=== PATIENT | female | born 1965 | race Native Hawaiian/Other Pacific Islander ===

== ENCOUNTER 2020-06-18 18:46 | Emergency (ER) | payer OTHER, MEDICAID, SELFPAY ==
[2020-06-18 19:21] VITALS: BP 138/66; PULSE 96; RESP 15; TEMP 36.8; O2SAT 98; BMI 25.4
--- NOTE | 2020-06-18 20:10 | ED_ITS ---
HPI - General Adult General Chief complaint: Urogenital-Female Stated complaint: VAGINAL PAIN Time Seen by Provider: 06/18/20 19:26 Source: patient Mode of arrival: Ambulatory Limitations: no limitations History of Present Illness HPI narrative: Patient is a 54-year-old female. Three days ago she was seen at an outside facility for dysuria. She states she was diagnosed with the urinary tract infection and was given a prescription for ciprofloxacin. She is unsure exactly how long she was given a course of this medication but she thought it was approximately 1 week. She has been taking it as directed. She comes to the emergency department today for continued/worsening symptoms. She is also now having which she describes is urinary incontinence. She also has quite a bit of discomfort in her vagina. She also feels like there is a ?ball? in her vagina. She is not having any back pain. Is having some nausea but no vomiting. No fevers. She has had a kidney infection in the past secondary to urinary tract infections. Related Data Home Medications Medication Instructions Recorded Confirmed HYDROCODONE/ACET 5/500 - 1 - 2 tab PO Q4-6H PRN #1 05/22/07 (Hydrocodon-Acetaminophen 5-500) IBUPROFEN (Motrin / Advil) 200 mg PO #0 05/22/07 Naproxen Sodium (Naprosyn) 250 mg PO PRN #0 05/22/07 Previous Rx's Medication Instructions Recorded acyclovir 400 mg PO TID 10 Days #30 tab 06/18/20 cephalexin 500 mg PO BID 5 Days #10 cap 06/18/20 lidocaine 1 applic TOPICAL QID PRN #15 g 06/18/20 Allergies Allergy/AdvReac Type Severity Reaction Status Date / Time codeine AdvReac Nausea Verified 06/18/20 19:21 Sulfa (Sulfonamide AdvReac Nausea Verified 06/18/20 19:21 Antibiotics) Review of Systems Constitutional Constitutional: Denies fever(s) and Denies headache(s) ENT Ears, Nose, Mouth, and Throat: Denies headache(s) Cardiovascular Cardiovascular: Denies chest pain and Denies dyspnea Respiratory Respiratory: Denies dyspnea Gastrointestinal Gastrointestinal: Denies abdominal pain, Reports nausea and Denies vomiting Genitourinary Genitourinary: Reports dysuria, Denies genital lesions, Reports urinary hesitancy, Reports urinary incontinence and Reports urinary urgency Genitourinary: Denies difficulty voiding, Reports dysuria, Denies genital pruritis, Denies genital lesions, Reports pelvic pain, Reports urinary incontinence, Reports urinary hesitancy, Reports urinary urgency and Denies vaginal discharge Musculoskeletal Musculoskeletal: Denies back pain Integumentary/Breasts Skin/Breast: Denies lesions and Denies rash Neurologic Neurologic: Denies behavioral changes and Denies headache(s) Psychiatric Psychiatric: Denies behavioral changes Hematologic/Lymphatic On Anticoagulants: No Allergic/Immunologic Allergic/Immunologic: Denies urticaria Patient History Medical History Healthy adult Social History Smoking Status: Current every day smoker Smoking Status: Current every day smoker Substance Use Type: does not use Exam Initial Vital Signs Initial Vital Signs: Vital Signs Temperature 98.3 F 06/18/20 19:21 Pulse Rate 96 H 06/18/20 19:21 Respiratory Rate 15 06/18/20 19:21 Blood Pressure 138/66 06/18/20 19:21 Pulse Oximetry 98 06/18/20 19:21 Const General: cooperative Limitations: mental status not altered [facility] Head: normal to inspection and normocephalic Resp Effort & Inspection: normal respiratory effort Auscultation: clear to auscultation bilaterally Cardio Rate: regular rate Rhythm: regular rhythm GI Inspection: non-distended Palpation: soft External Female Exam: lesion Speculum Exam - Vagina: abnormal vaginal discharge, lesion and No vaginal bleeding OB/External & Speculum: No vaginal bleeding Skin Rashes: no rashes Other: One pinpoint lesion on the left-sided labia majora Neuro General: patient alert and patient awake Cognition: normal cognition Speech: speech normal Extrem General: capillary refill normal Psych Appearance: grossly normal and well kempt Course Orders Ordered: ED Orders 06/18/20 19:54 Chlamydia Gonorrhea PCR -URINE Stat Urine Culture Stat Urine Microscopic Stat 06/18/20 20:41 HSV Culture Typing Stat RACHEAL Prep Stat Wet Prep Tric BV Sherrell Stat 06/18/20 20:45 GC Screen Stat Discontinued Medications Acyclovir (Acyclovir 400 Mg Tablet) 400 mg PO NOW ONE Stop: 06/18/20 22:37 Last Admin: 06/18/20 23:02 Dose: 400 mg Documented by: AXEL Cephalexin HCl (Cephalexin 250 Mg Capsule) 500 mg PO NOW ONE Stop: 06/18/20 22:37 Last Admin: 06/18/20 22:58 Dose: 500 mg Documented by: AXEL Vital Signs Vital signs: Vital Signs - 8 hr 06/18/20 23:04 Temperature 98.5 F Pulse Rate 92 H Respiratory Rate 16 Blood Pressure 122/56 L Pulse Oximetry 100 Medical Decision Making Lab Data Lab results reviewed: Yes I reviewed the patient's lab results. Labs: Lab Results 06/18/20 06/18/20 Range/Units 19:54 19:54 Urine RBC 5-10/hpf H (0-5/HPF) Urine WBC 30-100/hpf H (0-5/HPF) Ur Squamous Epith Cells 1-5 /hpf (0-5/HPF) Amorphous Sediment 1+ Urine Bacteria Few (2-10) H (None) Urine Mucus 2+ H (Negative) Ur Culture Indicated? Specimen cultured Ur Chlamydia DNA (PCR) Not detected N gonorrhoeae DNA (PCR) Not detected Urine Dip Bedside Urine Glucose Negative Bedside Urine Bilirubin - Negative Bedside Urine Ketone - Negative Urine Specific [place] 1.025 Bedside Urine Occult Blood ++ Bedside Urine pH 6.0 Bedside Urine Protein +/- 15 Bedside Urine Urobilinogen - Negative Bedside Urine Nitrite - Negative Bedside Urine Leukocytes + 70 Esterase Point of care testing: Urine Dip Bedside Urine Glucose Negative Bedside Urine Bilirubin - Negative Bedside Urine Ketone - Negative Urine Specific [place] 1.025 Bedside Urine Occult Blood ++ Bedside Urine pH 6.0 Bedside Urine Protein +/- 15 Bedside Urine Urobilinogen - Negative Bedside Urine Nitrite - Negative Bedside Urine Leukocytes + 70 Esterase MDM Narrative Medical decision making narrative: Her urinalysis today does appear to have an infection. She has been on Cipro without any improvement. Will switch her to doxycycline. Urine culture was obtained today. Her physical exam today is consistent with herpes. No lesions were fairly evident an were extremely tender to palpation. She had 1 lesion externally on the left labia a most lesions were internal. I could not perform a complete speculum exam because of the discomfort. Cultures were obtained. GC chlamydia was negative. Does not have a yeast infection. Will start on treatment for herpes. I discussed with her this diagnosis. She was given return precautions and follow-up instructions. Discharge Plan Departure Patient Disposition: Home Clinical Impression: Urinary tract infection, Genital herpes Instructions: DI for Urinary Tract Infection (UTI), DI for Genital Herpes Activity Restrictions/Additional Instructions: Stop taking the ciprofloxacin and start taking the Keflex as directed. Also start taking the acyclovir as directed. Contact your primary provider for a follow-up. Return to the emergency department for any new or worsening symptoms Prescriptions: New cephalexin 500 mg capsule 500 mg PO BID 5 Days Qty: 10 RF: 0 acyclovir 400 mg tablet 400 mg PO TID 10 Days Qty: 30 RF: 0 lidocaine 4 % cream 1 applic topical QID PRN (Reason: pain) Qty: 15 RF: 0 No Action IBUPROFEN (Motrin / Advil) 200 mg PO Qty: 0 RF: 0 Naproxen Sodium (Naprosyn) 250 mg PO PRN Qty: 0 RF: 0 HYDROCODONE/ACET 5/500 - (Hydrocodon-Acetaminophen 5-500) 1 - 2 tab PO Q4-6H PRN Qty: 1 RF: 0
[2020-06-18 20:23] LABS: Amorphous Sediment Urine 1+; RBC Urine 5-10/HPF (0-5/HPF); Squamous Epithelial Cell Urine 1-5 /HPF (0-5/HPF); WBC Urine 30-100/HPF (0-5/HPF)
[2020-06-18 20:24] LABS: Bacteria Urine Few (2-10); Culture Indicated Urine Specimen Cultured; Mucus Urine 2+ (Negative)
[2020-06-18] MEDS: cephALEXin 250 MG CAPSULE 500 MG PO (22:58)
[2020-06-18] MEDS: ACYCLOVIR 400 MG TABLET PO (23:02)
[2020-06-18 23:04] VITALS: BP 122/56; PULSE 92; RESP 16; TEMP 36.9; O2SAT 100
[2020-06-18 23:24] LABS: Urine N gonorrhoeae NOT DETECTED
[2020-06-18 23:31] LABS: Urine Chlamydia NOT DETECTED
== END 2020-06-18 23:05 | disposition home or self-care (01) ==
PROVIDERS: Emergency Provider Emergency Medicine
DX: N39.0 Urinary tract infection, site not specified (principal); R10.2 Pelvic and perineal pain; A60.00 Herpesviral infection of urogenital system, unspecified; R11.0 Nausea
CPT/HCPCS: 51798; 81003; 81015; 87081; 87086; 87210; 87220; 87255; 87491; 87591; 99283

== ENCOUNTER 2022-05-07 19:20 | Emergency (ER) | payer OTHER, MEDICAID, SELFPAY ==
[2022-05-07] VITALS (9 sets, daily range): BP systolic 92–138; BP diastolic 57–69; PULSE 96–107; RESP 22–28; TEMP 36.9; O2SAT 90–97
--- NOTE | 2022-05-07 19:42 | DI.RAD.S_ITS ---
PROCEDURE: XR CHEST 2V INDICATIONS: cough,congestion TECHNIQUE: 2 views of the chest were acquired. COMPARISON: [facility], CR, XR CHEST 1 VIEW, 12/05/2017, 21:03. FINDINGS: Surgical changes and devices: None. Lungs and pleura: Lungs are clear. No pleural effusions or pneumothorax. Mediastinum: Mediastinal contours are normal. Heart size is normal. Bones and chest wall: No suspicious bony abnormalities. Soft tissues appear unremarkable. IMPRESSION: 1. No acute cardiopulmonary disease. Dictated by: Martir Gonzales M.D. on 05/07/2022 at 20:40 Approved by: Martir Gonzales M.D. on 05/07/2022 at 20:41
[2022-05-07 20:29] LABS: Influenza A - CEPHEID Flu A NEGATIVE (NEGATIVE); Influenza B - CEPHEID Flu B NEGATIVE (NEGATIVE); Respiratory Syncytial Virus Negative (Negative)
[2022-05-07 20:32] LABS: COVID-19 CEPHEID 4-PLEX PCR Negative (Negative)
--- NOTE | 2022-05-07 22:03 | ED.URI ---
HPI - URI/Sore Throat General Chief Complaint: Upper Respiratory Symptoms Stated Complaint: congestion Time Seen by Provider: 05/07/22 20:41 Source: patient Mode of arrival: Ambulatory History of Present Illness HPI Narrative: 56-year-old female smoker with noncontributory chronic medical history presents with a chief complaint of upwards of 10 days of dry and hacking cough and inability to catch her breath. She has had fever but also complains of some nasal congestion. She denies any difficulty swallowing or chest pain. She states that she had some Keflex laying around from a prior episode of pneumonia and is taking them over the past day or 2 but has not improved at all. She states she felt a bit better after exposure to cold air earlier but now feels terrible again. She denies recent travel, known cancer, injury, trauma, hospitalization or lower extremity pain, swelling or redness Related Data Home Medications Medication Instructions Recorded Confirmed HYDROCODONE/ACET 5/500 - 1 - 2 tab PO Q4-6H PRN ##1 05/22/07 (Hydrocodon-Acetaminophen 5-500) IBUPROFEN (Motrin / Advil) 200 mg PO ##0 05/22/07 Naproxen Sodium (Naprosyn) 250 mg PO PRN ##0 05/22/07 Previous Rx's Medication Instructions Recorded lidocaine 4 % topical cream 1 applic topical QID PRN pain #15 06/18/20 grams benzonatate 200 mg capsule 200 mg PO BID PRN cough #20 caps 05/08/22 doxycycline hyclate 100 mg tablet 100 mg PO BID #20 tabs 05/08/22 prednisone 10 mg tablet See Rx Instructions .Route 05/08/22 .COMPLEX #30 tabs Allergies Allergy/AdvReac Type Severity Reaction Status Date / Time codeine AdvReac Nausea Verified 06/18/20 19:21 Sulfa (Sulfonamide AdvReac Nausea Verified 06/18/20 19:21 Antibiotics) Review of Systems Review of Systems Narrative: GENERAL: See HPI HEENT: See HPI RESPIRATORY: See HPI CARDIOVASCULAR: Denies chest pain, palpitations, orthopnea, edema, GASTROINTESTINAL: Denies nausea, vomiting, abdominal pain, diarrhea, constipation, melena. : Denies dysuria, frequency, incontinence, hematuria, urinary retention. MUSCULOSKELETAL: denies weakness, joint pain, or bony pain SKIN: Denies rash, skin lesions, or other NEUROLOGIC: Denies weakness, headache, numbness, change in speech, confusion, seizures, incoordination. PSYCHIATRIC: No concerning psychosocial issues. 12 point review of systems is negative except for those stated above Patient History Medical History Healthy adult Social History Smoking Status: Current every day smoker Smoking Status: Current every day smoker Substance Use Type: does not use Exam Initial Vital Signs Initial Vital Signs: Vital Signs Temperature 98.4 F 05/07/22 19:25 Pulse Rate 107 H 05/07/22 19:25 Respiratory Rate 22 05/07/22 19:25 Blood Pressure 128/57 L 05/07/22 19:25 Pulse Oximetry 97 05/07/22 19:25 Oxygen Delivery Method Room Air 05/07/22 19:25 Course Orders Ordered: Discontinued Medications Albuterol (Albuterol Hfa Prepack) 1 box MISC SEEINSTR ONE Stop: 05/08/22 02:15 Last Admin: 05/08/22 02:30 Dose: 1 box Documented By: CLIFFORD Albuterol/Ipratropium (Albuterol/Ipratropium 3 Ml Ampul) 3 ml INH NOW ONE Stop: 05/08/22 02:23 Doxycycline Hyclate (Doxycycline Hyclate 100 Mg Tablet) 100 mg PO NOW ONE Stop: 05/08/22 02:15 Last Admin: 05/08/22 02:30 Dose: 100 mg Documented By: CLIFFORD Sodium Chloride (Normal Saline 0.9%) 1,000 mls @ 1,000 mls/hr IV BOLUS ONE Stop: 05/08/22 00:16 Last Infusion: 05/08/22 00:53 Dose: 0 mls/hr Documented By: Admin: 05/07/22 23:48 Dose: 1,000 mls/hr Documented By: CLIFFORD Methylprednisolone (Methylprednisolone 125 Mg/2 Ml Vial) 125 mg IV NOW ONE Stop: 05/08/22 02:15 Last Admin: 05/08/22 02:30 Dose: 125 mg Documented By: CLIFFORD Vital Signs Vital signs: Vital Signs - 8 hr 05/07/22 19:25 05/07/22 21:54 05/07/22 21:56 Temperature 98.4 F Pulse Rate 107 H 101 H Respiratory Rate 22 Blood Pressure 128/57 L 92/69 Pulse Oximetry 97 96 Oxygen Delivery Method Room Air 05/07/22 21:56 05/07/22 22:00 05/07/22 22:01 Temperature Pulse Rate 99 H 101 H Respiratory Rate 24 26 H Blood Pressure 136/58 L Pulse Oximetry 95 97 Oxygen Delivery Method 05/07/22 22:01 Temperature Pulse Rate 99 H Respiratory Rate 24 Blood Pressure Pulse Oximetry 95 Oxygen Delivery Method MDM - URI/Sore Throat Lab Data 05/07/22 23:25 05/07/22 23:25 Labs: Lab Results 05/07/22 05/07/22 05/07/22 Range/Units 19:45 23:25 23:25 WBC 8.2 (4.5-11.0) X10^3/uL RBC 3.96 L (4.0-5.2) X10^6/uL Hgb 12.3 (12.0-16.0) g/dL Hct 36.3 (36-46) % MCV 91.5 (80-100) fL MCH 31.1 (26-34) PG MCHC 34.0 (30-36) % RDW 12.7 (11.6-14.8) % Plt Count 370 (150-400) X10^3/uL Neut % (Auto) 61.6 (50-75) % Lymph % (Auto) 24.8 L (25-40) % [place] % (Auto) 9.9 (3-14) % Eos % (Auto) 3.4 (2-4) % Baso % (Auto) 0.3 (0-2) % Neut # (Auto) 5000 (0350-4616) /uL Lymph # (Auto) 2000 (3083-5377) /uL [place] # (Auto) 800 (0-900) /uL Eos # (Auto) 300 (0-450) /uL Baso # (Auto) 0 (0-100) /uL D-Dimer 2507 H (<500) ng/ml Sodium (137-145) mmol/L Potassium (3.4-5.1) mmol/L Chloride (98-107) mmol/L Carbon Dioxide (22-32) mmol/L BUN (7-17) mg/dL Creatinine (0.52-1.04) mg/dL Estimated GFR (>60) mL/min BUN/Creatinine Ratio (6-22) Glucose (70-100) mg/dL Calcium (8.4-10.2) mg/dL Magnesium (1.6-2.3) mg/dL Total Bilirubin (0.2-1.3) mg/dL AST (14-36) IU/L ALT (<35) IU/L Alkaline Phosphatase (38-126) U/L Total Creatine Kinase (30-135) U/L CK-MB (CK-2) (<2.37) ng/mL CK-MB (CK-2) Rel Index (1.5-5.0) % Troponin I (0.01-0.034) ng/mL NT-Pro-B Natriuret Pep (<125) pg/mL Total Protein (6.3-8.2) g/dL Albumin (3.5-5.0) g/dL Globulin (1.7-4.1) g/dL Albumin/Globulin Ratio (1.0-2.8) SARS-CoV-2 (PCR) Negative (Negative) Influenza A (RT-PCR) Flu a negative (NEGATIVE) Influenza B (RT-PCR) Flu b negative (NEGATIVE) RSV (PCR) Negative (Negative) 05/07/22 05/07/22 05/07/22 Range/Units 23:25 23:25 23:29 WBC (4.5-11.0) X10^3/uL RBC (4.0-5.2) X10^6/uL Hgb (12.0-16.0) g/dL Hct (36-46) % MCV (80-100) fL MCH (26-34) PG MCHC (30-36) % RDW (11.6-14.8) % Plt Count (150-400) X10^3/uL Neut % (Auto) (50-75) % Lymph % (Auto) (25-40) % [place] % (Auto) (3-14) % Eos % (Auto) (2-4) % Baso % (Auto) (0-2) % Neut # (Auto) (2432-0531) /uL Lymph # (Auto) (0032-0012) /uL [place] # (Auto) (0-900) /uL Eos # (Auto) (0-450) /uL Baso # (Auto) (0-100) /uL D-Dimer (<500) ng/ml Sodium 137 (137-145) mmol/L Potassium 3.1 L (3.4-5.1) mmol/L Chloride 98 (98-107) mmol/L Carbon Dioxide 32 (22-32) mmol/L BUN 13 (7-17) mg/dL Creatinine 0.49 L (0.52-1.04) mg/dL Estimated GFR > 60 (>60) mL/min BUN/Creatinine Ratio 26.5 H (6-22) Glucose 132 H (70-100) mg/dL Calcium 8.3 L (8.4-10.2) mg/dL Magnesium 2.0 (1.6-2.3) mg/dL Total Bilirubin 0.6 (0.2-1.3) mg/dL AST 21 (14-36) IU/L ALT 17 (<35) IU/L Alkaline Phosphatase 99 (38-126) U/L Total Creatine Kinase 112 (30-135) U/L CK-MB (CK-2) 0.80 (<2.37) ng/mL CK-MB (CK-2) Rel Index 0.7 L (1.5-5.0) % Troponin I < 0.012 (0.01-0.034) ng/mL NT-Pro-B Natriuret Pep 138 H (<125) pg/mL Total Protein 7.5 (6.3-8.2) g/dL Albumin 3.7 (3.5-5.0) g/dL Globulin 3.8 (1.7-4.1) g/dL Albumin/Globulin Ratio 1.0 (1.0-2.8) SARS-CoV-2 (PCR) Negative (Negative) Influenza A (RT-PCR) Flu a negative (NEGATIVE) Influenza B (RT-PCR) Flu b negative (NEGATIVE) RSV (PCR) Negative (Negative) MDM Narrative Medical decision making narrative: CC: 56F smoker with worsening SOB and cough Complicating co-morbidities: age, smoker Data collected from: Patient Medical records reviewed: Prior notes reviewed in our EMR Differential considered, but not limited to: Pneumonia, exacerbation of COPD, flu, COVID, pulmonary embolism versus other Exam documented above, pertinent findings include: Tachycardic, increased work of breathing, hypoxemic, crackles in right base Lab Test results independently reviewed as above. Pertinent findings: Respiratory panel negative for COVID, flu and RSV, no leukocytosis or left shift, no evidence of anemia, Ddimer critically elevated, Independently reviewed EKG as above Imaging studies independently reviewed: Chest x-ray with no acute process, CTA demonstrates no PE Re-evaluations:Patient feeling great improvement after above-stated therapies Discussion: Patient with SOB and cough presents with worsening symptoms over the past few days. She has improvement with bronchodilators and steroids, imaging is reassuring, labs suggest pursuit of pulmonary embolism is possible culprit is needed, however thankfully CTA is unremarkable and there is no evidence of PE or pneumonia. Patient does not require supplemental oxygen, is in no significant distress, has improved symptoms, is tolerating orals and appropriate for discharge Disposition: see below, along with detailed discharge instructions that have been reviewed with patient as well as indications for ED re-evaluation and additional outpatient follow up Discharge Plan Departure Patient Disposition: Home Clinical Impression: Acute exacerbation of chronic obstructive pulmonary disease, Atypical pneumonia Instructions: Chronic Obstructive Pulmonary Disease, DI for Atypical Pneumonia Activity Restrictions/Additional Instructions: *You have been diagnosed with [atypical pneumonia and exacerbation of COPD] *What to do: *Please continue to take your regular medications as directed. [x ] New medication prescriptions sent to your pharmacy: [[facility] in [place] ] [ ] New medication written as a paper prescription [ ] No new medications given *Please follow up with your primary care provider in 2-3 days, call for an appointment. Let them know you were seen in the Emergency Department and that we ask that you be seen in follow up. We will electronically transmit a record of today's note if your PCP is in our system *If you do not have a primary care provider please contact the [facility] Resource line at [phone]. They will ask some questions about your medical history and help get you set up with a doctor in the community. *Return to Emergency Department if you should have any new, worsening or concerning symptoms, such as [fever greater than 101 F, shaking chills, worsening pain, persistent vomiting or other bothersome symptoms] Prescriptions: New prednisone 10 mg tablet See Rx Instructions .ROUTE .COMPLEX Qty: 30 0RF Rx Instructions: Day 1,2,3: 40mg PO Daily Day 4,5,6: 30mg PO Daily Day 7,8,9: 20mg PO Daily Day 10,11,12: 10mg PO Daily #30 benzonatate 200 mg capsule 200 mg PO BID PRN (Reason: cough) Qty: 20 0RF doxycycline hyclate 100 mg tablet 100 mg PO BID Qty: 20 0RF No Action IBUPROFEN (Motrin / Advil) 200 mg PO Qty: 0 Naproxen Sodium (Naprosyn) 250 mg PO PRN Qty: 0 HYDROCODONE/ACET 5/500 - (Hydrocodon-Acetaminophen 5-500) 1 - 2 tab PO Q4-6H PRN Qty: 1 lidocaine 4 % cream 1 applic topical QID PRN (Reason: pain) Qty: 15 0RF Stand Alone Forms: Patient Portal/API
[2022-05-07 23:43] LABS: Add Manual Diff / Slide Review NO; Basophils Absolute Auto 0 /uL (0-100); Basophils Percent Auto 0.3 % (0-2); Eosinophils Absolute Auto 300 /uL (0-450); Eosinophils Percent Auto 3.4 % (2-4); Hematocrit 36.3 % (36-46); Hemoglobin 12.3 g/dL (12.0-16.0); Lymphocytes Absolute Auto 2000 /uL (1100-4500); Lymphocytes Percent Auto 24.8 % (25-40); Mean Corpuscular Hemoglobin 31.1 PG (26-34); Mean Corpuscular Volume 91.5 fL (80-100); Monocytes Absolute Auto 800 /uL (0-900); Monocytes Percent Auto 9.9 % (3-14); Neutrophils Absolute Auto 5000 /uL (1500-7000); Neutrophils Percent Auto 61.6 % (50-75); Platelet Count 370 X10^3/uL (150-400); Red Blood Cell Count 3.96 X10^6/uL (4.0-5.2); Red Cell Distribution Width 12.7 % (11.6-14.8); White Blood Cell Count 8.2 X10^3/uL (4.5-11.0)
[2022-05-07] MEDS: SODIUM CHLORIDE 0.9% 1,000 ML 1000 ML IV (23:48)
[2022-05-07 23:50] LABS: D Dimer 2507 ng/ml (<500)
[2022-05-07 23:57] LABS: Alanine Aminotransferase 17 IU/L (<35); Albumin 3.7 g/dL (3.5-5.0); Alkaline Phosphatase 99 U/L (38-126); Aspartate Aminotransferase 21 IU/L (14-36); BUN Creatinine Ratio 26.5 (6-22); Bilirubin Total 0.6 mg/dL (0.2-1.3); Blood Urea Nitrogen 13 mg/dL (7-17); Calcium 8.3 mg/dL (8.4-10.2); Carbon Dioxide 32 mmol/L (22-32); Chloride 98 mmol/L (98-107); Creatine Kinase 112 U/L (30-135); Estimated Glomerular Filt Rate > 60 mL/min (>60); Globulin 3.8 g/dL (1.7-4.1); Glucose 132 mg/dL (70-100); HEMOLYSIS < 15 (0-50); Potassium 3.1 mmol/L (3.4-5.1); Sodium 137 mmol/L (137-145); Total Protein 7.5 g/dL (6.3-8.2)
[2022-05-08] VITALS (9 sets, daily range): BP systolic 122–145; BP diastolic 58–65; PULSE 93–107; RESP 27–34; O2SAT 91–98
[2022-05-08 00:11] LABS: NT-proBNP (BNP-Adult 18+) 138 pg/mL (<125); Troponin I < 0.012 ng/mL (0.01-0.034)
[2022-05-08 00:12] LABS: CKMB % Relative Index 0.7 % (1.5-5.0)
--- NOTE | 2022-05-08 00:20 | DI.CT.S_ITS ---
PROCEDURE: CT ANGIO CHEST PE PROTOCOL INDICATIONS: SOB, cough, smoker, hypoxemia, critical dimer TECHNIQUE: After the administration of intravenous contrast, 2 mm thick sections acquired from the pulmonary apices to the posterior costophrenic angles. 3-dimensional maximum intensity projection (MIP) coronal and sagittal reformats were then acquired through the thorax. For radiation dose reduction, the following was used: automated exposure control, adjustment of mA and/or kV according to patient size. COMPARISON: [facility], CT, CT CHEST ABDOMEN PELVIS WITH CONTRAST, 12/05/2017, 21:37. FINDINGS: Image quality: Excellent. Pulmonary arteries: Pulmonary arteries are normal in size, and demonstrate no intraluminal filling defects to suggest central pulmonary embolism. Lower Neck: No lymphadenopathy by size criteria. Thyroid: Visualized thyroid demonstrates no discrete nodules. Axillae: No lymphadenopathy by size criteria. Chest Wall: Unremarkable. Bones: Visualized osseous structures demonstrate no suspicious lesions. Lungs and Airways: No acute consolidation. There is mild bronchial wall thickening in the lung bases with scattered foci of mucous plugging. Few scattered indistinct peribronchial linear opacities are demonstrated in the lower lobes. The findings suggest sequelae of mild aspiration. The trachea and central airways are patent. Pleura: No pneumothorax or pleural effusions. Heart: Heart size is normal. No pericardial effusion. Thoracic Vessels: The thoracic aorta is normal in size. Mediastinum and Nisa: No lymphadenopathy by size criteria. Esophagus: There is mild esophageal wall thickening. No hiatal hernia. Abdomen: Visualized upper abdominal solid organs appear normal in the early arterial phase of enhancement. IMPRESSION: 1. No evidence of pulmonary embolism. 2. Mild bibasilar bronchial wall thickening and mucous plugging with a few scattered indistinct peribronchial opacities. The findings suggest sequelae of mild aspiration. Dictated by: Martir Gonzales M.D. on 05/08/2022 at 1:27 Approved by: Martir Gonzales M.D. on 05/08/2022 at 1:32
[2022-05-08 01:17] LABS: Influenza A - CEPHEID Flu A NEGATIVE (NEGATIVE); Influenza B - CEPHEID Flu B NEGATIVE (NEGATIVE); Respiratory Syncytial Virus Negative (Negative)
[2022-05-08 01:20] LABS: COVID-19 CEPHEID 4-PLEX PCR Negative (Negative)
[2022-05-08] MEDS: ALBUTEROL HFA PREPACK 1 BOX MISC (02:30)
[2022-05-08] MEDS: DOXYCYCLINE HYCLATE 100 MG TABLET PO (02:30)
[2022-05-08] MEDS: methylPREDNISolone 125 MG/2 ML VIAL IV (02:30)
== END 2022-05-08 03:02 | disposition home or self-care (01) ==
PROVIDERS: Emergency Provider Emergency Medicine
DX: J18.9 Pneumonia, unspecified organism (principal); J44.1 Chronic obstructive pulmonary disease with (acute) exacerbation; Z20.822 Contact with and (suspected) exposure to COVID-19
CPT/HCPCS: 0241U; 36415; 71046; 71275; 80053; 82550; 82553; 83735; 83880; 84484; 85025; 85379; 87070; 87205; 96361; 96374; 99284; 99285; J2930; Q9967